=== PATIENT | female | born 1955 | race Caucasian/White ===

== ENCOUNTER 2019-01-05 16:45 | Emergency (ER) | payer OTHER ==
[~2019-01-05] VITALS: Ht 165.1 cm; Wt 65.8 kg
[~2019-01-05 16:45] MED LIST: B-1 PO; FOLI0.4T2 PO; LACT10SO5 PO; MAGN64TA6 PO; MULT-246 PO; SPIR100T4 PO; THIA100T8 PO; [UNRECOGNIZED DRUG - CODE] PO
[2019-01-05] MEDS ORDERED: HYDROcodone/APAP 5/325MG 1 TAB TABLET PO ONE ×2 (18:00→21:15)
[2019-01-05 21:30] VITALS: BP 161/72
[2019-01-05] MEDS ORDERED: fentaNYL PF VIAL 100 MCG/2 ML VIAL IV ONE (21:30)
[2019-01-05] MEDS ORDERED: ETOMIDATE 20 MG/10 ML VIAL. IV ONE (21:30)
[2019-01-05] MEDS ORDERED: IV NORMAL SALINE 1000ML BAG 1,000 ML IV ONE (22:30)
[2019-01-05] MEDS ORDERED: IBUP-1007 PO (22:53)
[2019-01-05] MEDS ORDERED: HYDR-3164 PO (22:53)
--- NOTE | 2019-01-05 22:54 | PHYS DOC ---
Past Medical History Past Medical History: Other Additional Past Medical Histor: leukemia (ASHLI EARL APPLICATION SUPPORT TECHNICIAN) Past Surgical History: Tonsillectomy Additional Past Surgical Histo: left leg broke last year (ASHLI EARL APPLICATION SUPPORT TECHNICIAN) Alcohol Use: Occasionally Drug Use: Marijuana (ASHLI EARL APPLICATION SUPPORT TECHNICIAN) Adult General Chief Complaint Chief Complaint: MECHANICAL FALL HPI HPI Patient is a 63 year old female who presents with some ice outside her driveway today. Patient now has right wrist pain that radiates up her arm. She states when she fell she landed on the right arm with her hand hyperextended backward. When she was trying to catch herself. Patient rates his pain a 7 out of 10 and states is sharp and radiating. She denies hitting her head, LOC, nausea vomiting, dizziness. Patient denies any other pain or symptoms. (ASHLI EARL APPLICATION SUPPORT TECHNICIAN) Review of Systems Review of Systems Constitutional: Denies fever or chills [] Eyes: Denies change in visual acuity, redness, or eye pain [] HENT: Denies nasal congestion or sore throat [] Respiratory: Denies cough or shortness of breath [] Cardiovascular: No additional information not addressed in HPI [] GI: Denies abdominal pain, nausea, vomiting, bloody stools or diarrhea [] : Denies dysuria or hematuria [] Musculoskeletal: Denies back pain or joint pain [] Integument: Denies rash or skin lesions [] Neurologic: Denies headache, focal weakness or sensory changes [] Endocrine: Denies polyuria or polydipsia [] All other systems were reviewed and found to be within normal limits, except as documented in this note. (ASHLI EARL APPLICATION SUPPORT TECHNICIAN) Current Medications Current Medications Current Medications Medications (Trade) Dose Ordered Sig/Anne Start Time Stop Time Status Last Admin Dose Admin Acetaminophen/ Hydrocodone Bitart (Lortab 5/325) 1 tab 1X ONCE 01/05/19 21:15 01/05/19 21:16 DC 01/05/19 21:18 1 TAB Etomidate (Amidate) 10 mg 1X ONCE 01/05/19 21:30 01/05/19 21:33 DC 01/05/19 21:58 10 MG Fentanyl Citrate (Fentanyl 2ml Vial) 100 mcg 1X ONCE 01/05/19 21:30 01/05/19 21:33 DC 01/05/19 21:57 100 MCG Sodium Chloride 1,000 ml @ 1,000 mls/hr 1X ONCE 01/05/19 22:30 01/05/19 23:29 DC 01/05/19 21:55 1,000 MLS/HR (ANNALISA CHEATHAM DO) Allergies Allergies Allergies Coded Allergies Type Severity Reaction Last Updated Verified No Known Drug Allergies 01/05/19 No (ANNALISA CHEATHAM DO) Physical Exam Physical Exam Constitutional: Well developed, well nourished, no acute distress, non-toxic appearance. [] HENT: Normocephalic, atraumatic, bilateral external ears normal, oropharynx moist, no oral exudates, nose normal. [] Eyes: PERRLA, EOMI, conjunctiva normal, no discharge. [] Neck: Normal range of motion, no tenderness, supple, no stridor. [] Cardiovascular:Heart rate regular rhythm, no murmur [] Lungs & Thorax: Bilateral breath sounds clear to auscultation [] Abdomen: Bowel sounds normal, soft, no tenderness, no masses, no pulsatile masses. [] Skin: Warm, dry, no erythema, no rash. [] Back: No tenderness, no CVA tenderness. [] Extremities: No tenderness, no cyanosis, no clubbing, ROM intact, no edema. [] Neurologic: Alert and oriented X 3, normal motor function, normal sensory function, no focal deficits noted. [] Psychologic: Affect normal, judgement normal, mood normal. [] (BAFUS,ASHLI M APPLICATION SUPPORT TECHNICIAN) Physical Exam Constitutional: Well developed, well nourished, no acute distress, non-toxic appearance. [] HENT: Normocephalic, atraumatic, oropharynx moist Eyes: Conjunctiva normal, no discharge. [] Neck: Normal range of motion, no tenderness, supple Cardiovascular: Heart rate regular rhythm, no murmur [] Lungs & Thorax: Bilateral breath sounds clear to auscultation [] Skin: Warm, dry, no erythema, no rash, ecchymosis and swelling noted to left wrist radial aspect Extremities: ROM intact, left distal wrist swelling and tenderness with palpation and ROM Neurologic: Alert and oriented X 3, normal motor function, normal sensory function, no focal deficits noted. [] Psychologic: Affect normal, judgement normal, mood normal. (ANNALISA CHEATHAM DO) Current Patient Data Vital Signs Vital Signs Date Time Temp Pulse Resp B/P (MAP) Pulse Ox O2 Delivery O2 Flow Rate FiO2 01/05/19 22:59 54 16 100 01/05/19 21:57 Nasal Cannula 3.0 01/05/19 21:30 97.8 161/72 97.6 (ANNALISA CHEATHAM DO) EKG EKG [] (ASHLI EARL APRN) Radiology/Procedures Radiology/Procedures [] (ASHLI EARL APRN) Radiology/Procedures PROCEDURE: WRIST 3V RIGHT Right wrist 3 views. HISTORY: Pain after a fall 3 views were taken of the right wrist. There is a fracture the ulnar styloid process. There is an angulated mildly displaced fracture of the distal radius. The fracture is mildly comminuted. Fracture extends to the articular surface medially. There is a cortex width of dorsal displacement. There is impaction of the dorsal cortex. IMPRESSION: 1. Fracture distal radius and ulnar styloid. Electronically signed by: Pranay Palacios MD (01/06/2019 12:02 AM) [facility] PROCEDURE: FOREARM RIGHT Right forearm 2 views. HISTORY: Pain after a fall 2 views were taken of the right forearm. There is a comminuted fracture the distal radius with dorsal displacement. There is a fracture the ulnar styloid. There is no proximal forearm fracture. IMPRESSION: 1. Fracture distal radius and ulnar styloid. Electronically signed by: Pranay Palacios MD (01/06/2019 12:00 AM) [facility] PROCEDURE: WRIST 2V RIGHT Right wrist 2 views. HISTORY: Post reduction 2 views the right wrist show a fracture the distal radius and a fracture the ulnar styloid. There has been a mild improvement in the positioning and dilatation since the prior study. There is still in cortex width of dorsal displacement and mild angulation. The wrist is in a cast. IMPRESSION: 1. Mild improvement in angulation and positioning. Electronically signed by: Pranay Palacios MD (01/06/2019 12:51 AM) [facility] (ANNALISA CHEATHAM DO) Course & Med Decision Making Course & Med Decision Making Patient is a 63 year old female who presents with some ice outside her driveway today. Patient now has right wrist pain that radiates up her arm. She states when she fell she landed on the right arm with her hand hyperextended backward. When she was trying to catch herself. Patient rates his pain a 7 out of 10 and states is sharp and radiating. She denies hitting her head, LOC, nausea vomiting, dizziness. Patient denies any other pain or symptoms. Alert and oriented. PERRLA. Patient has right wrist swelling at 3+. Skin is pink warm and dry. Radial pulses strong and present. Cap refill is less than 3 seconds. Patient can wiggle her fingers and denies any numbness or tingling. Patient has intact range of motion in her elbow. Patient has no pain with palpation up the rest of her forearm only at the wrist. Patient has no other deformities, abrasions or lacerations, bruising or edema at any other place on her body. Patient is ambulatory with a steady gait. X-ray was read by Dr. Balbuena patient has a ulnar styloid fracture and a distal radius fracture. Dr. Cheatham is will attempt a reduction was the patient is under sedation. Patient will need to follow-up with Dr. Mejias as soon as possible she will receive prescriptions for pain medications. Patient is placed into a sugar tong splint. (ASHLI EARL APRN) Dragon Disclaimer Dragon Disclaimer This electronic medical record was generated, in whole or in part, using a voice recognition dictation system. (ASHLI EARL APRN) Departure Departure Impression: Primary Impression: Fracture of ulnar styloid Additional Impression: Distal radius fracture Disposition: 01 HOME, SELF-CARE Condition: STABLE Referrals: ANNALISA SWEENEY MD (PCP) JESSICA MEJIAS MD Patient Instructions: Radius Fracture with [facility], Ulnar Fracture Additional Instructions: Call the orthopedic office for a scheduled appointment for as soon as possible. Do not a cast wet. If it begins to feel too tight or yeast her having swelling and can unwrap it and rewrap it. Scripts Ibuprofen (IBUPROFEN) 600 Mg Tablet 600 MG PO PRN Q6HRS PRN for INFLAMMATION, #20 TAB Prov: ASHLI EARL APRN 01/05/19 Hydrocodone/Apap 5-325 (NORCO 5-325 TABLET) 1 Each Tablet 1 TAB PO PRN Q6HRS PRN for PAIN, #15 TAB 0 Refills Prov: ASHLI EARL APPLICATION SUPPORT TECHNICIAN 01/05/19 Splinting Splinting : Location: Left wrist Hand-Made Type: orthoglass Splint: ulnar (long arm) Pre-Proc Neuro Vasc Exam: normal Post-Proc Neuro Vasc Exam: normal, unchanged from pre-exam (ANNALISA CHEATHAM DO) Additional Procedures Progress Fracture reduction under Moderate Sedation: Written consent obtained. Time out performed. Cardiac, pulse oxymetry, and end tidal CO2 monitors in placed. IVF hydration provided. Fentanyl 100mcg given by RN. Etomidate 10mg IVP provided by myself. Appropriate sedation achieved. Manual manipulation peformed to left distal radius for fracture- reduction. Splint applied by myself and staff nurse icu resource team. Patient tolerated procedure well and without difficulty. Handled secretions well. Airway intact. Patient monitored in ED until clinically sober. (ANNALISA CHEATHAM DO) MODERATE SEDATION ASSESSMENT RISKS/ALTERNATIVES Risks/Alternatives Risks and alternatives of this type of sedation and procedure discussed with: RISK/ALTERNATIVES: Patient (ANNALISA CHEATHAM DO) H & P ON CHART H & P H & P on chart and reviewed for co-morbid conditions and appropriate labs. H&P ON CHART: Yes (ANNALISA CHEATHAM DO) STATUS PREG STATUS ASSESSED: N/A (ANNALISA CHEATHAM DO) MEDS/ALLERGIES REVIEWED Meds/Allergies Reviewed Medications and Allergies including time and route of recently administered narcotics and sedatives. MEDS/ALLERGIES REVIEWED: Yes (ANNALISA CHEATHAM DO) ASA RATING ASA RATING: III (ANNALISA CHEATHAM DO) AIRWAY ASSESSMENT Airway Assessment Airway patency, oral function limitations, presence of caps, crowns, dentures, partials, and ability to extend neck assessed. AIRWAY ASSESSMENT: Yes (ANNALISA CHEATHAM DO) MALLAMPATI SCORE MALLAMPATI SCORE: III (ANNALISA CHEATHAM DO) PRE-SEDATION ASSESSMENT PRE-SEDATION ASSESSMENT: Yes (ANNALISA CHEATHAM DO) Attending Signature Attending Signature I have personally interviewed and examined the patient. All charts, labs, and imaging studies were reviewed. I agree with the PA/REGULATORY AUDITOR's findings, exam, and plan. (ANNALISA CHEATHAM DO) Problem Qualifiers Primary Impression: Fracture of ulnar styloid Encounter type: initial encounter Fracture type: closed Fracture alignment : displaced Laterality: right Qualified Codes: S52.611A - Displaced fracture of right ulna styloid process, initial encounter for closed fracture Additional Impression: Distal radius fracture Encounter type: initial encounter Fracture type: closed Fracture morphology : other fracture Laterality: right Qualified Codes: S52.591A - Other fractures of lower end of right radius, initial encounter for closed fracture ASHLI EARL APRN Jan 05, 2019 22:53 ANNALISA CHEATHAM DO Jan 06, 2019 05:43
[2019-01-05 22:59] VITALS: BP 161/80
--- NOTE | 2019-01-06 00:05 | RAD ---
Right forearm 2 views. HISTORY: Pain after a fall 2 views were taken of the right forearm. There is a comminuted fracture the distal radius with dorsal displacement. There is a fracture the ulnar styloid. There is no proximal forearm fracture. IMPRESSION: 1. Fracture distal radius and ulnar styloid. Electronically signed by: Pranay Palacios MD (01/06/2019 12:00 AM) [facility]
--- NOTE | 2019-01-06 00:07 | RAD ---
Right wrist 3 views. HISTORY: Pain after a fall 3 views were taken of the right wrist. There is a fracture the ulnar styloid process. There is an angulated mildly displaced fracture of the distal radius. The fracture is mildly comminuted. Fracture extends to the articular surface medially. There is a cortex width of dorsal displacement. There is impaction of the dorsal cortex. IMPRESSION: 1. Fracture distal radius and ulnar styloid. Electronically signed by: Pranay Palacios MD (01/06/2019 12:02 AM) [facility]
--- NOTE | 2019-01-06 00:55 | RAD ---
Right wrist 2 views. HISTORY: Post reduction 2 views the right wrist show a fracture the distal radius and a fracture the ulnar styloid. There has been a mild improvement in the positioning and dilatation since the prior study. There is still in cortex width of dorsal displacement and mild angulation. The wrist is in a cast. IMPRESSION: 1. Mild improvement in angulation and positioning. Electronically signed by: Pranay Palacios MD (01/06/2019 12:51 AM) [facility]
== END 2019-01-05 23:09 | disposition home or self-care (01) ==
LOC: ER 16:45
DX: S52.591A Other fractures of lower end of right radius, initial encounter for closed fracture (principal); S52.611A Displaced fracture of right ulna styloid process, initial encounter for closed fracture; W18.39XA Other fall on same level, initial encounter; Y93.89 Activity, other specified; Y92.89 Other specified places as the place of occurrence of the external cause; Y99.8 Other external cause status
CPT/HCPCS: 25605; 73090; 73100; 73110; 99285; J3010; J7030

== ENCOUNTER 2020-06-13 11:48 | Emergency (ER) | payer MEDICARE, OTHER ==
[~2020-06-13] VITALS: Ht 162.6 cm; Wt 68.0 kg
[~2020-06-13 11:48] MED LIST changes: +HYDR-3164 PO; +IBUP-1007 PO
[2020-06-13] MEDS ORDERED: IV NORMAL SALINE 1000ML BAG 1,000 ML IV SCH (12:29)
--- NOTE | 2020-06-13 12:32 | PHYS DOC ---
Past Medical History Past Medical History: Other Additional Past Medical Histor: leukemia Past Surgical History: Tonsillectomy Additional Past Surgical Histo: left leg broke last year Smoking Status: Current Every Day Smoker Alcohol Use: Occasionally Drug Use: Marijuana General Adult EDM: Chief Complaint: FLANK PAIN HPI: HPI: Patient is a 64 year old presents emergency department with left flank pain. She states the pain started last night and lasted all evening. She states it kept her from sleeping. She denies having pain like this before. She states she has a history of cirrhosis. She denies any dysuria or hematuria. No vomiting or nausea. No fever or chills. Review of Systems: Review of Systems: Constitutional: Denies fever or chills. [] Eyes: Denies change in visual acuity. [] HENT: Denies nasal congestion or sore throat. [] Respiratory: Denies cough or shortness of breath. [] Cardiovascular: Denies chest pain or edema. [] GI: positive for flank pain, nausea, vomiting, bloody stools or diarrhea. [] : Denies dysuria. [] Musculoskeletal: Denies back pain or joint pain. [] Integument: Denies rash. [] Neurologic: Denies headache, focal weakness or sensory changes. [] Endocrine: Denies polyuria or polydipsia. [] Lymphatic: Denies swollen glands. [] Psychiatric: Denies depression or anxiety. [] Heart Score: Risk Factors: Risk Factors: DM, Current or recent (<one month) smoker, HTN, HLP, family history of CAD, obesity. Risk Scores: Score 0 - 3: 2.5% MACE over next 6 weeks - Discharge Home Score 4 - 6: 20.3% MACE over next 6 weeks - Admit for Clinical Observation Score 7 - 10: 72.7% MACE over next 6 weeks - Early Invasive Strategies Allergies: Allergies: Allergies Coded Allergies Type Severity Reaction Last Updated Verified No Known Drug Allergies 01/05/19 No Physical Exam: PE: Constitutional: Well developed, well nourished, no acute distress, non-toxic appearance. [] HENT: Normocephalic, atraumatic, bilateral external ears normal, oropharynx moist, no oral exudates, nose normal. [] Eyes: PERRLA, EOMI, conjunctiva normal, no discharge. [] Neck: Normal range of motion, no tenderness, supple, no stridor. [] Cardiovascular:Heart rate regular rhythm, no murmur [] Lungs & Thorax: Bilateral breath sounds clear to auscultation [] Abdomen: TTP in the left flank. No rebound or guarding. Skin: Warm, dry, no erythema, no rash. [] Back: No tenderness, no CVA tenderness. [] Extremities: No tenderness, no cyanosis, no clubbing, ROM intact, no edema. [] Neurologic: Alert and oriented X 3, normal motor function, normal sensory function, no focal deficits noted. [] Psychologic: Affect normal, judgement normal, mood normal. [] EKG: EKG: [] Radiology/Procedures: Radiology/Procedures: [] Course & Med Decision Making: Course & Med Decision Making Pertinent Labs and Imaging studies reviewed. (See chart for details) Patient with left flank pain. Differential diagnosis includes kidney stone, UTI, muscle strain. Examination: CT ABDOMEN PELVIS WO CONTRAST History: Reason: flank pain / Comparison/Correlation: None Findings: Echo images of the abdomen and pelvis are obtained without contrast. Sagittal and coronal reformatted images were provided. The lung bases are clear. Liver, spleen, pancreas and adrenal glands are normal. Minimal sludge may be present within the gallbladder. No hydronephrosis or nephrolithiasis. No ascites or pelvic free fluid. Appendix is normal. Diverticulosis of the colon is present. Small umbilical hernia contains omental fat. Punctate calcification bilaterally involving the renal nishant which are probably vascular in location noted. No radiopaque calyceal calculi definitely seen. No hydronephrosis or hydroureter. Urinary bladder is unremarkable. Moderate amount of stool in the colon noted. There is no ascites or pelvic free fluid. No enlarged abdominal or pelvic lymph nodes. No acute or suspicious bony process. Impression: No radiopaque collecting system calculi or evidence of obstruction. Diverticulosis without findings of inflammation. Patient with normal CT and labss Dragjenise Disclaimer: Mariangel Disclaimer: This electronic medical record was generated, in whole or in part, using a voice recognition dictation system. Departure Departure Impression: Primary Impression: Flank pain Disposition: HOME, SELF-CARE Condition: IMPROVED Referrals: ANNALISA SWEENEY MD (PCP) Patient Instructions: Flank Pain Justicifation of Admission Dx: Justifications for Admission: Justification of Admission Dx: N/A YUNIOR AGUILLON DO Jun 13, 2020 12:32
[2020-06-13 12:48] LABS: BILIRUBIN,URINE NEGATIVE (NEG); CLARITY,URINE CLEAR; COLOR,URINE YELLOW; NITRITE,URINE NEGATIVE (NEG); PROTEIN,URINE NEGATIVE (NEG-TRACE); UROBILINOGEN,URINE 0.2 mg/dL (0.2 mg/dL)
[2020-06-13 13:12] LABS: BACTERIA,URINE 0 /HPF (0-FEW); RBC,URINE 0 /HPF (0-2); SQUAMOUS EPITHELIAL CELL,UR FEW /LPF; WBC,URINE 0 /HPF (0-4)
[2020-06-13 13:40] LABS: BASO % 0 % (0-3); EOS # 0.1 x10^3/uL (0.0-0.7); EOS % 1 % (0-3); HEMATOCRIT 44.1 % (36.0-47.0); HEMOGLOBIN 15.1 g/dL (12.0-15.5); LYMPH # 7.5 x10^3/uL (1.0-4.8); LYMPH % 59 % (24-48); MEAN CORPUSCULAR HEMOGLOBIN 33 pg (25-35); MEAN CORPUSCULAR HGB CONC 34 g/dL (31-37); MEAN CORPUSCULAR VOLUME 95 fL (79-100); MONO # 0.5 x10^3/uL (0.0-1.1); MONO % 4 % (0-9); NEUT # 4.7 x10^3/uL (1.8-7.7); NEUT % 37 % (31-73); PLATELET COUNT 243 x10^3/uL (140-400); RED BLOOD COUNT 4.66 x10^6/uL (3.50-5.40); RED CELL DISTRIBUTION WIDTH 13.4 % (11.5-14.5); WHITE BLOOD COUNT 12.8 x10^3/uL (4.0-11.0)
[2020-06-13 13:51] LABS: CALCIUM 9.2 mg/dL (8.5-10.1); GFR 55.6; POTASSIUM 4.5 mmol/L (3.5-5.1)
[2020-06-13 13:56] LABS: % EOS 2 % (0-5); % LYMPHS 63 % (24-48); % MONOS 2 % (0-10); % SEGS 33 % (35-66); ALBUMIN 3.8 g/dL (3.4-5.0); ALBUMIN/GLOBULIN RATIO 1.2 (1.0-1.7); TOTAL BILIRUBIN 0.6 mg/dL (0.2-1.0); TOTAL PROTEIN 7.1 g/dL (6.4-8.2)
[2020-06-13 13:59] LABS: PLT ESTIMATE ADEQUATE (ADEQUATE); SMUDGE CELLS PRESENT
--- NOTE | 2020-06-13 14:04 | RAD ---
Examination: CT ABDOMEN PELVIS WO CONTRAST History: Reason: flank pain / Comparison/Correlation: None Findings: Echo images of the abdomen and pelvis are obtained without contrast. Sagittal and coronal reformatted images were provided. The lung bases are clear. Liver, spleen, pancreas and adrenal glands are normal. Minimal sludge may be present within the gallbladder. No hydronephrosis or nephrolithiasis. No ascites or pelvic free fluid. Appendix is normal. Diverticulosis of the colon is present. Small umbilical hernia contains omental fat. Punctate calcification bilaterally involving the renal nishant which are probably vascular in location noted. No radiopaque calyceal calculi definitely seen. No hydronephrosis or hydroureter. Urinary bladder is unremarkable. Moderate amount of stool in the colon noted. There is no ascites or pelvic free fluid. No enlarged abdominal or pelvic lymph nodes. No acute or suspicious bony process. Impression: No radiopaque collecting system calculi or evidence of obstruction. Diverticulosis without findings of inflammation. PQRS Compliance Statement: One or more of the following individualized dose reduction techniques were utilized for this examination: 1. Automated exposure control 2. Adjustment of the mA and/or kV according to patient size 3. Use of iterative reconstruction technique Electronically signed by: Rolando Enrique MD (06/13/2020 2:01 PM) [id number]
[2020-06-13 14:27] VITALS: BP 153/80
== END 2020-06-13 14:35 | disposition home or self-care (01) ==
LOC: ER 11:48
DX: R10.32 Left lower quadrant pain (principal); F17.200 Nicotine dependence, unspecified, uncomplicated; F12.90 Cannabis use, unspecified, uncomplicated; Z98.890 Other specified postprocedural states; Z90.89 Acquired absence of other organs
CPT/HCPCS: 36415; 74176; 80053; 81001; 85007; 85025; 99284; J7030

== ENCOUNTER 2020-06-18 11:58 | Emergency (ER) | payer MEDICARE ==
[~2020-06-18] VITALS: Ht 160 cm; Wt 68.2 kg
[2020-06-18 12:30] VITALS: BP 145/81
[2020-06-18 14:23] LABS: BILIRUBIN,URINE NEGATIVE (NEG); CLARITY,URINE CLEAR; COLOR,URINE YELLOW; NITRITE,URINE NEGATIVE (NEG); PROTEIN,URINE NEGATIVE (NEG-TRACE); UROBILINOGEN,URINE 0.2 mg/dL (0.2 mg/dL)
[2020-06-18 14:37] LABS: BACTERIA,URINE 0 /HPF (0-FEW); SQUAMOUS EPITHELIAL CELL,UR FEW /LPF
--- NOTE | 2020-06-18 14:48 | PHYS DOC ---
Past Medical History Past Medical History: Other Additional Past Medical Histor: leukemia, AND Cirrohsis of liver Past Surgical History: Tonsillectomy Additional Past Surgical Histo: left leg broke last year Smoking Status: Current Every Day Smoker Alcohol Use: Occasionally Drug Use: Marijuana General Adult EDM: Chief Complaint: PAIN CONTROL HPI: HPI: Patient is a 64 year old female who presents to the emergency department with request for pain medication. Patient states she was seen here last week and was diagnosed with left flank pain. She reports that the pain continues. She denies any fever, hematuria, increased urinary frequency, dysuria, vomiting, diarrhea, abdominal pain, chest pain, numbness, tingling, or weakness. She states that she feels nauseated with the pain. Currently she rates pain a 10 out of 10 on pain scale, she denies any alleviating or exacerbating factors. Review of Systems: Review of Systems: Constitutional: Denies fever or chills. [] HENT: Denies nasal congestion or sore throat. [] Respiratory: Denies cough or shortness of breath. [] Cardiovascular: Denies chest pain or edema. [] GI: Denies abdominal pain, nausea, vomiting, or diarrhea; see HPI [] : Denies dysuria. [] Musculoskeletal: Denies joint pain. [] Integument: Denies rash. [] Neurologic: Denies headache Psychiatric: Denies depression or anxiety. [] Heart Score: Risk Factors: Risk Factors: DM, Current or recent (<one month) smoker, HTN, HLP, family history of CAD, obesity. Risk Scores: Score 0 - 3: 2.5% MACE over next 6 weeks - Discharge Home Score 4 - 6: 20.3% MACE over next 6 weeks - Admit for Clinical Observation Score 7 - 10: 72.7% MACE over next 6 weeks - Early Invasive Strategies Allergies: Allergies: Allergies Coded Allergies Type Severity Reaction Last Updated Verified No Known Drug Allergies 01/05/19 No Physical Exam: PE: Constitutional: Well developed, well nourished, no acute distress, non-toxic appearance. [] HENT: Normocephalic, atraumatic, bilateral external ears normal, nose normal. [] Eyes: PERRLA, EOMI, conjunctiva normal, no discharge. [] Neck: Normal range of motion, no tenderness, supple, no stridor. [] Cardiovascular:Heart rate regular rhythm, no murmur [] Lungs & Thorax: Respirations even and unlabored, no retractions, no respiratory distress Abdomen: soft, no tenderness Skin: Warm, dry, no erythema, no rash. [] Back: No bony tenderness, no CVA tenderness: Left flank tenderness to palpation. [] Extremities: No cyanosis, ROM intact, no edema. [] Neurologic: Alert and oriented X 3, no focal deficits noted. [] Psychologic: Affect normal, judgement normal, mood normal. [] Current Patient Data: Labs: Laboratory Tests Test 06/18/20 14:14 Urine Collection Type Unknown Urine Color Yellow Urine Clarity Clear Urine pH 6.0 (<5.0-8.0) Urine Specific Guild 1.010 (1.000-1.030) Urine Protein Negative mg/dL (NEG-TRACE) Urine Glucose (UA) Negative mg/dL (NEG) Urine Ketones (Stick) Negative mg/dL (NEG) Urine Blood Negative (NEG) Urine Nitrite Negative (NEG) Urine Bilirubin Negative (NEG) Urine Urobilinogen Dipstick 0.2 mg/dL (0.2 mg/dL) Urine Leukocyte Esterase Negative (NEG) Urine RBC 1-2 /HPF (0-2) Urine WBC 1-4 /HPF (0-4) Urine Squamous Epithelial Cells Few /LPF Urine Bacteria 0 /HPF (0-FEW) Vital Signs: Vital Signs Date Time Temp Pulse Resp B/P (MAP) Pulse Ox O2 Delivery O2 Flow Rate FiO2 06/18/20 12:30 98.2 82 16 145/81 (102) 98 Room Air 98.2 EKG: EKG: [] Radiology/Procedures: Radiology/Procedures: [] Course & Med Decision Making: Course & Med Decision Making Pertinent Labs and Imaging studies reviewed. (See chart for details) 64-year-old female presented to the emergency department with request for pain medication. She had been seen last week and was diagnosed with flank pain but no pain medication was prescribed. Patient reports that the pain continues. Today's urinalysis was not concerning for urinary tract infection or kidney stone. Advised the patient that I would not prescribe any narcotic pain medication for chronic pain, I offered to prescribe the patient a muscle relaxer and anti-inflammatory. The patient declined these medications. [] Dragon Disclaimer: Dragon Disclaimer: This electronic medical record was generated, in whole or in part, using a voice recognition dictation system. Departure Departure Impression: Primary Impression: Flank pain, chronic Disposition: 01 HOME, SELF-CARE Condition: STABLE Referrals: ANNALISA FRANCISCO MD (PCP) Patient Instructions: Flank Pain, [id number] Additional Instructions: Take tylenol or ibuprofen as needed for pain. Follow up with Dr. Francisco this week. Return to the ER if symptoms worsen. Justicifation of Admission Dx: Justifications for Admission: Justification of Admission Dx: N/A ALAN MERINO TRANSPORTATION EQUIPMENT PAINTER Jun 18, 2020 14:48
== END 2020-06-18 15:00 | disposition home or self-care (01) ==
LOC: ER 11:58
DX: R10.9 Unspecified abdominal pain (principal); F17.200 Nicotine dependence, unspecified, uncomplicated
CPT/HCPCS: 81001; 99283

== ENCOUNTER → 2021-02-11 | Outpatient (CLI) | payer MEDICARE ==
[~2021-02-11] MED LIST changes: -FOLI0.4T2 PO; +FOLI0.4T5 PO
[2021-02-11 14:44] LABS: BASO # 0.1 x10^3/uL (0.0-0.2); BASO % 1 % (0-3); EOS # 0.2 x10^3/uL (0.0-0.7); EOS % 2 % (0-3); HEMATOCRIT 42.4 % (36.0-47.0); HEMOGLOBIN 14.6 g/dL (12.0-15.5); LYMPH # 6.7 x10^3/uL (1.0-4.8); LYMPH % 58 % (24-48); MEAN CORPUSCULAR HEMOGLOBIN 32 pg (25-35); MEAN CORPUSCULAR HGB CONC 34 g/dL (31-37); MEAN CORPUSCULAR VOLUME 94 fL (79-100); MONO # 0.6 x10^3/uL (0.0-1.1); MONO % 5 % (0-9); NEUT # 4.1 x10^3/uL (1.8-7.7); NEUT % 35 % (31-73); PLATELET COUNT 252 x10^3/uL (140-400); RED BLOOD COUNT 4.53 x10^6/uL (3.50-5.40); RED CELL DISTRIBUTION WIDTH 13.3 % (11.5-14.5); WHITE BLOOD COUNT 11.6 x10^3/uL (4.0-11.0)
[2021-02-11 14:57] LABS: CALCIUM 9.2 mg/dL (8.5-10.1); GFR 55.5; POTASSIUM 4.4 mmol/L (3.5-5.1)
[2021-02-11 15:04] LABS: ALBUMIN 3.7 g/dL (3.4-5.0); ALBUMIN/GLOBULIN RATIO 1.1 (1.0-1.7); TOTAL BILIRUBIN 0.3 mg/dL (0.2-1.0)
[2021-02-11 18:02] LABS: % ATYL 2 % (0-0); % EOS 5 % (0-5); % LYMPHS 61 % (24-48); % MONOS 6 % (0-10); % SEGS 26 % (35-66)
[2021-02-11 18:46] LABS: PLT ESTIMATE ADEQUATE (ADEQUATE); SMUDGE CELLS PRESENT
[2021-02-11 18:48] LABS: ANISOCYTOSIS SLIGHT; POIKILOCYTOSIS SLIGHT
[2021-02-11 18:50] LABS: HYPOCHROMIA SLIGHT
== END ==
LOC: ONCLAB 14:12
PROVIDERS: ATTEND Internal Medicine Hematology & Oncology
DX: C91.10 Chronic lymphocytic leukemia of B-cell type not having achieved remission (principal)
CPT/HCPCS: 36415; 80053; 85007; 85025

== ENCOUNTER → 2021-08-13 | Outpatient (CLI) | payer MEDICARE ==
[2021-08-13 13:23] LABS: BASO # 0.1 x10^3/uL (0.0-0.2); BASO % 1 % (0-3); EOS # 0.2 x10^3/uL (0.0-0.7); EOS % 1 % (0-3); HEMATOCRIT 42.5 % (36.0-47.0); HEMOGLOBIN 14.4 g/dL (12.0-15.5); LYMPH # 6.8 x10^3/uL (1.0-4.8); LYMPH % 57 % (24-48); MEAN CORPUSCULAR HEMOGLOBIN 32 pg (25-35); MEAN CORPUSCULAR HGB CONC 34 g/dL (31-37); MEAN CORPUSCULAR VOLUME 94 fL (79-100); MONO # 0.6 x10^3/uL (0.0-1.1); MONO % 5 % (0-9); NEUT # 4.4 x10^3/uL (1.8-7.7); NEUT % 37 % (31-73); PLATELET COUNT 249 x10^3/uL (140-400); RED BLOOD COUNT 4.51 x10^6/uL (3.50-5.40)
[2021-08-13 13:36] LABS: CALCIUM 9.3 mg/dL (8.5-10.1); CREATININE 1.1 mg/dL (0.6-1.0); GFR 49.7; POTASSIUM 4.4 mmol/L (3.5-5.1)
[2021-08-13 13:42] LABS: ALBUMIN 3.9 g/dL (3.4-5.0); ALBUMIN/GLOBULIN RATIO 1.3 (1.0-1.7); TOTAL BILIRUBIN 0.4 mg/dL (0.2-1.0)
[2021-08-13 16:23] LABS: % BASOS 1 % (0-3); % EOS 1 % (0-5); % LYMPHS 55 % (24-48); % MONOS 4 % (0-10); % SEGS 39 % (35-66); PLT ESTIMATE ADEQUATE (ADEQUATE)
== END ==
LOC: ONCLAB 13:06
PROVIDERS: ATTEND Internal Medicine Hematology & Oncology
DX: C91.10 Chronic lymphocytic leukemia of B-cell type not having achieved remission (principal)
CPT/HCPCS: 36415; 80053; 85007; 85025